=== PATIENT | female | born 1990 | race Caucasian/White ===

== ENCOUNTER 2019-01-09 13:46 | Inpatient (IN) | payer OTHER ==
[~2019-01-09 13:46] MED LIST: Bupivacaine 0.25% HCL 30 ML VIAL ONE
[2019-01-09 14:27] VITALS: BMI 27.6
[2019-01-09] MEDS ORDERED: hydrALAZINE 20 MG/ML VIAL SLOW IVP PRN ×2 (14:33→17:00)
[2019-01-09 14:47] LABS: Amnisure Test RUPTURE DETECTED (No Rupture)
[2019-01-09 14:48] LABS: Amnisure Internal Control QC ACCEPTABLE (ACCEPTABLE)
[2019-01-09] MEDS: Lactated Ringer's 1,000 ML IV SCH (16:28)
[2019-01-09] MEDS ORDERED: Lidocaine 1% (PF) 30 ML VIAL SC PRN (17:00)
[2019-01-09] MEDS ORDERED: Lactated Ringer's 1,000 ML IV SCH (17:00)
[2019-01-09] MEDS ORDERED: NS / Oxytocin 40 units/1000ml 1,000 ML IV PRN (17:00)
[2019-01-09] MEDS ORDERED: Penicillin G Potassium 5 MILL.UNITS in Sodium Chloride 0.9% 100 ML IVPB SCH (17:00)
[2019-01-09] MEDS ORDERED: Butorphanol Tartrate 1 MG/ML VIAL SLOW IVP PRN (17:00)
[2019-01-09] MEDS ORDERED: Ibuprofen 800 MG TAB PO PRN (17:00)
[2019-01-09] MEDS ORDERED: Promethazine HCl 25 MG/ML VIAL IM PRN ×2 (17:00→22:47)
[2019-01-09] MEDS ORDERED: NS w/ Oxytocin 10 units 500 ML IV SCH (17:00)
[2019-01-09] MEDS ORDERED: HYDROcodone/Acetaminophen 5/325 mg Tablet PO PRN ×2 (17:00)
[2019-01-09] MEDS ORDERED: Ondansetron PF 4 MG/2 ML Vial IVP PRN ×2 (17:00→22:47)
[2019-01-09 17:08] LABS: Hemoglobin 12.4 g/dL (12.0-16.0); Mean Corpuscular HGB CONC 34.6 g/dL (32.0-36.0); Mean Corpuscular Hemoglobin 33.3 pg (27.0-31.0); Mean Corpuscular Volume 96.4 fL (78.0-98.0); Mean Platelet Volume 9.1 fL (7.4-10.4); Platelet Count 204 thou/uL (130-400); RBC Distribution Width 12.4 % (11.5-14.5); Red Blood Cell (RBC) Count 3.74 mill/uL (4.20-5.40); White Blood Cell (WBC) Count 15.3 thou/uL (4.8-10.8)
[2019-01-09 17:48] LABS: HBSAg Index 0.15 S/CO (0-0.99); Hep B Surf Ag Non-Reactive S/CO (NonReactive); Syphilis Antibody Nonreactive (Nonreactive); Syphilis Antibody Index 0.04 S/CO (<1.00 Non-Reactive)
[2019-01-09] MEDS: Penicillin G 2.5 MILL.units 2.5 MILL.UNITS in Premix Bag 1 BAG IVPB SCH (21:16)
[2019-01-09] MEDS ORDERED: Fentanyl 4 mcg/Bup 0.1% Cadd 100 ML ONE (21:49)
[2019-01-09] MEDS: Fentanyl 4 mcg/Bupivacaine 0.1% Cassette 100 ML EPIDURAL SCH (22:36)
[2019-01-09] MEDS ORDERED: ePHEDrine/0.9% NaCl/PF SYRINGE 50 mg/10 ml SLOW IVP PRN (22:47)
[2019-01-09] MEDS ORDERED: Lactated Ringer's 500 ML IV PRN (22:47)
[2019-01-09] MEDS ORDERED: Acetaminophen 325 MG TAB PO PRN (22:47)
[2019-01-09] MEDS ORDERED: Naloxone HCl 0.4 mg/ml Vial IVP PRN ×2 (22:47)
[2019-01-09] MEDS ORDERED: diphenhydrAMINE 50 MG/ML VIAL IVP PRN (22:47)
[2019-01-09] MEDS ORDERED: Communication Order-Pharmacy FS SCH (23:00)
[2019-01-10] MEDS: Lactated Ringer's 1,000 ML IV SCH ×3 (01:12→18:04)
[2019-01-10] MEDS: Penicillin G 2.5 MILL.units 2.5 MILL.UNITS in Premix Bag 1 BAG IVPB SCH ×5 (01:12→14:02)
[2019-01-10] MEDS ORDERED: Fentanyl 4 mcg/Bup 0.1% Cadd 100 ML ONE (05:38)
[2019-01-10] MEDS ORDERED: Milk Of Magnesia 30 ML UDCUP PO PRN (06:56)
[2019-01-10] MEDS ORDERED: Lanolin Ointment 7 GM TUBE TOP PRN (06:56)
[2019-01-10] MEDS ORDERED: Bisacodyl 10 MG SUPP PR PRN (06:56)
[2019-01-10] MEDS ORDERED: HYDROcodone/Acetaminophen 5/325 mg Tablet PO PRN ×2 (06:56)
[2019-01-10] MEDS ORDERED: Preparation H Ointment 28 GM TUBE PR PRN (06:56)
[2019-01-10] MEDS ORDERED: hydrALAZINE 20 MG/ML VIAL SLOW IVP PRN (06:56)
[2019-01-10] MEDS ORDERED: Ondansetron PF 4 MG/2 ML Vial IVP PRN (06:56)
[2019-01-10] MEDS ORDERED: Benzocaine-Menthol 82.5 ML CAN TOP PRN (06:56)
[2019-01-10] MEDS ORDERED: NS / Oxytocin 40 units/1000ml 1,000 ML IV SCH (07:00)
[2019-01-10] MEDS: Fentanyl 4 mcg/Bupivacaine 0.1% Cassette 100 ML EPIDURAL SCH (07:02)
--- NOTE | 2019-01-10 08:12 | DN ---
DATE OF PROCEDURE: 01/10/2019 PREOPERATIVE DIAGNOSES: 1. A 28-year-old, G2, P0-0-1-0, who presented for premature rupture of the membranes. 2. Group B Streptococcus unknown. 3. History per the patient of size greater than dates for abdominal circumference. 4. 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 POSTOPERATIVE DIAGNOSES: 1. A 28-year-old, G2, P0-0-1-0, who presented for premature rupture of the membranes. 2. Group B Streptococcus unknown. 3. History per the patient of size greater than dates for abdominal circumference. 4. 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 5. Live-born male at 35 and 2 weeks. 6. Hymenal laceration with repair and perilateral labial repair first-degree abrasions. CLINICAL HISTORY: This patient is a 28-year-old female, G2, P0-0-1-0, who called the office line with a concern for leakage of fluid. She was advised to present to [facility] for evaluation and treatment. The patient was noted to be grossly ruptured. Her history was reviewed and noted that she had a due date of 02/12, which would have placed her at 35 weeks and 1 day. She was checked and was noted to be 3 cm, 70% effaced per the nurse, and 2 hours later, she had made a change to 4 cm, 80% effaced, and -2 station per the physician. Given her prematurity and GBS unknown status, the patient was given penicillin prophylaxis for GBS. She was able to complete 3 doses prior to delivery. The patient had an uneventful labor course. She did become uncomfortable after Pitocin was started, when she did not continue to make cervical change. The patient made progression to complete cervical dilation and +2 station and then began to push. DESCRIPTION OF PROCEDURE: With good maternal effort, the vertex was brought to the pelvic floor and . Delivery of the head in the ALVARO position noted delivery of the head, then the anterior shoulder, followed by the posterior shoulder, then the remainder of the infant's body. The infant cried spontaneously. It was stimulated and bulb suctioned before being handed over to the nurses in attendance to the delivery. The cord was doubly clamped and then cut by the father, and the was placed on the maternal abdomen for continued stimulation. The placenta was delivered spontaneously intact with a 3-vessel cord. Placenta was sent for evaluation, but no abnormalities were noted at the time of delivery. The exploration of the vagina introitus and cervix noted a hymenal laceration that had a portion of the hymen lingering through the introitus and onto the outer portion like a small tail. This was reapproximated with a 3-0 Vicryl on SH with excellent hemostasis. There were also bilateral labial tears that were first-degree lacerations that were repaired and reapproximated. The patient had good uterine tone at the end of the procedure and was noted to be firm and well below the umbilicus. She was cleansed and de-draped, and all needle, sponge, lap, and instrument counts were correct x2 at the end of the procedure. The mother was able to recover with her infant. The Neonatology Team was called in for assessment of the shortly after delivery when he had issues with respirations. After support, the team deemed him satisfactory for the nursery in regular care with continued surveillance. There were no other issues surrounding this delivery. Job ID: [id number]
[2019-01-10] MEDS: Docusate Calcium (SURFAK) 240 MG CAP PO SCH ×3 (12:41→21:28)
[2019-01-10] MEDS: Prenatal Vitamin 1 TAB PO SCH (12:41)
[2019-01-10] MEDS: Ibuprofen 800 MG TAB PO SCH ×2 (13:30→21:28)
[2019-01-11] MEDS: Lactated Ringer's 1,000 ML IV SCH ×3 (04:08→17:30)
[2019-01-11] MEDS: Ibuprofen 800 MG TAB PO SCH ×3 (06:16→21:45)
[2019-01-11] MEDS ORDERED: Adacel (T-DAP) 0.5 ML SYRINGE IM ONE (06:56)
[2019-01-11] MEDS: Prenatal Vitamin 1 TAB PO SCH (09:19)
[2019-01-11] MEDS: Docusate Calcium (SURFAK) 240 MG CAP PO SCH ×2 (09:20→21:45)
[2019-01-12] MEDS: Ibuprofen 800 MG TAB PO SCH (05:02)
[2019-01-12] MEDS: Lactated Ringer's 1,000 ML IV SCH ×2 (05:04→07:24)
[2019-01-12 08:27] VITALS: BP 113/59; TEMP 98.3
[2019-01-12] MEDS: Prenatal Vitamin 1 TAB PO SCH (09:14)
[2019-01-12] MEDS: Docusate Calcium (SURFAK) 240 MG CAP PO SCH (09:14)
== END 2019-01-12 11:25 | disposition home or self-care (01) | DRG 807 ==
LOC: L&D/OP 13:46 → L&D 16:52 → 3SW 01-10 15:42
PROVIDERS: ADMIT Obstetrics & Gynecology; ATTEND Obstetrics & Gynecology
PROC: 10E0XZZ Delivery of Products of Conception, External Approach (ICD-10-PCS; principal; 2019-01-10)
PROC: 0HQ9XZZ Repair Perineum Skin, External Approach (ICD-10-PCS; 2019-01-10)
DX: O42.013 Preterm premature rupture of membranes, onset of labor within 24 hours of rupture, third trimester (principal); Z37.0 Single live birth; Z3A.35 35 weeks gestation of pregnancy; O70.0 First degree perineal laceration during delivery
CPT/HCPCS: 36415; 36416; 51702; 84112; 85027; 86780; 86850; 86900; 86901; 87340; 88307; 90715; 99285; J2001; J2540; J2590; J3490; S0020

== ENCOUNTER 2020-02-23 02:12 | Inpatient (IN) | payer OTHER ==
[2020-02-23 03:02] VITALS: BMI 27.3
[2020-02-23] MEDS ORDERED: HYDROcodone/Acetaminophen 5/325 mg Tablet PO PRN ×4 (03:03→10:41)
[2020-02-23] MEDS ORDERED: Carboprost 250 MCG/ML AMP IM PRN (03:03)
[2020-02-23] MEDS ORDERED: Lidocaine 1% (PF) 30 ML VIAL SC PRN ×2 (03:03→07:40)
[2020-02-23] MEDS ORDERED: Promethazine HCl 25 MG/ML VIAL IM PRN ×2 (03:03→03:51)
[2020-02-23] MEDS ORDERED: Ondansetron PF 4 MG/2 ML Vial IVP PRN ×3 (03:03→10:41)
[2020-02-23] MEDS ORDERED: Methylergonovine 0.2 MG/ML VIAL IM PRN (03:03)
[2020-02-23] MEDS ORDERED: Meperidine HCl/PF 25 MG/ML VIAL IM/IV PRN (03:03)
[2020-02-23] MEDS ORDERED: hydrALAZINE 20 MG/ML VIAL SLOW IVP PRN ×2 (03:03→10:41)
[2020-02-23] MEDS ORDERED: Misoprostol 200 MCG TAB PR PRN (03:03)
[2020-02-23] MEDS ORDERED: Butorphanol Tartrate 1 MG/ML VIAL SLOW IVP PRN (03:03)
[2020-02-23] MEDS ORDERED: NS / Oxytocin 40 units/1000ml 1,000 ML IV PRN ×2 (03:03→07:40)
[2020-02-23] MEDS ORDERED: Ibuprofen 800 MG TAB PO PRN (03:03)
[2020-02-23] MEDS ORDERED: NS w/ Oxytocin 10 units 500 ML IV SCH ×2 (03:15→07:45)
[2020-02-23] MEDS ORDERED: FLU VACC QS2020-21(6MOS UP)/PF 60 MCG/0.5 ML SYRINGE IM ONE (03:15)
[2020-02-23] MEDS ORDERED: Lactated Ringer's 1,000 ML IV SCH (03:15)
[2020-02-23 03:17] LABS: Hemoglobin 14.3 g/dL (12.0-16.0); Mean Corpuscular HGB CONC 35.2 g/dL (32.0-36.0); Mean Corpuscular Volume 99.5 fL (78.0-98.0); Mean Platelet Volume 8.5 fL (7.4-10.4); Platelet Count 155 thou/uL (130-400); RBC Distribution Width 12.3 % (11.5-14.5); Red Blood Cell (RBC) Count 4.07 mill/uL (4.20-5.40); White Blood Cell (WBC) Count 13.8 thou/uL (4.8-10.8)
[2020-02-23] MEDS ORDERED: Fentanyl 4 mcg/Bup 0.1% Cadd 100 ML ONE (03:19)
[2020-02-23] MEDS: Lactated Ringer's 1,000 ML IV SCH ×2 (03:35→09:00)
[2020-02-23] MEDS ORDERED: Lactated Ringer's 500 ML IV PRN (03:51)
[2020-02-23] MEDS ORDERED: Acetaminophen 325 MG TAB PO PRN (03:51)
[2020-02-23] MEDS ORDERED: diphenhydrAMINE 50 MG/ML VIAL IVP PRN (03:51)
[2020-02-23] MEDS ORDERED: EPHEDRINE 25 MG/5 ML SYRINGE SLOW IVP PRN (03:51)
[2020-02-23] MEDS ORDERED: Naloxone HCl 0.4 mg/ml Vial IVP PRN ×2 (03:51)
[2020-02-23] MEDS ORDERED: Fentanyl 4 mcg/Bupivacaine 0.1% Cassette 100 ML EPIDURAL SCH (04:00)
[2020-02-23] MEDS ORDERED: Communication Order-Pharmacy FS SCH (04:00)
[2020-02-23 04:28] LABS: HBSAg Index 0.24 S/CO (0-0.99); Hep B Surf Ag Non-Reactive S/CO (NonReactive)
[2020-02-23 04:37] LABS: Syphilis Antibody Nonreactive (Nonreactive); Syphilis Antibody Index 0.03 S/CO (<1.00 Non-Reactive)
[2020-02-23] MEDS ORDERED: Bupivacaine 0.25% HCL 30 ML VIAL ONE (08:53)
[2020-02-23] MEDS ORDERED: NS / Oxytocin 40 units/1000ml 1,000 ML ONE (09:52)
[2020-02-23] MEDS ORDERED: Lidocaine 1% (PF) 30 ML VIAL ONE (09:52)
[2020-02-23] MEDS ORDERED: Milk Of Magnesia 30 ML UDCUP PO PRN (10:41)
[2020-02-23] MEDS ORDERED: Misoprostol 200 MCG TAB VAG PRN (10:41)
[2020-02-23] MEDS ORDERED: Lanolin Ointment 7 GM TUBE TOP PRN (10:41)
[2020-02-23] MEDS ORDERED: Bisacodyl 10 MG SUPP PR PRN (10:41)
[2020-02-23] MEDS ORDERED: Zolpidem Tartrate 5 MG TAB PO PRN (10:41)
[2020-02-23] MEDS ORDERED: diphenhydrAMINE 25 MG CAP PO PRN (10:41)
[2020-02-23] MEDS ORDERED: Preparation H Ointment 28 GM TUBE PR PRN (10:41)
[2020-02-23] MEDS ORDERED: Benzocaine-Menthol 82.5 ML CAN TOP PRN (10:41)
[2020-02-23] MEDS ORDERED: NS / Oxytocin 40 units/1000ml 1,000 ML IV SCH (10:45)
[2020-02-23] MEDS: Ibuprofen 800 MG TAB PO SCH ×2 (13:37→21:25)
[2020-02-23 16:00] LABS: SARS-CoV-2 MS2 Positive; SARS-CoV-2 N Gene Negative; SARS-CoV-2 S Gene Negative; SARS-CoV-2 by NAA Not Detected (NotDetected); SARS-CoV-2 orf1ab Negative
[2020-02-23] MEDS: Ferrous Sulfate 325 MG TAB PO SCH (16:23)
[2020-02-23] MEDS: Docusate Calcium (SURFAK) 240 MG CAP PO SCH (21:25)
[2020-02-24] MEDS: Ibuprofen 800 MG TAB PO SCH (05:38)
[2020-02-24 05:43] VITALS: BP 146/68; TEMP 98.3
[2020-02-24 06:44] LABS: Hemoglobin 12.6 g/dL (12.0-16.0); Mean Corpuscular HGB CONC 33.8 g/dL (32.0-36.0); Mean Corpuscular Hemoglobin 34.2 pg (27.0-31.0); Mean Platelet Volume 8.7 fL (7.4-10.4); Platelet Count 123 thou/uL (130-400); RBC Distribution Width 12.5 % (11.5-14.5); Red Blood Cell (RBC) Count 3.68 mill/uL (4.20-5.40); White Blood Cell (WBC) Count 20.2 thou/uL (4.8-10.8)
[2020-02-24] MEDS ORDERED: Adacel (T-DAP) 0.5 ML SYRINGE IM ONE (09:00)
[2020-02-24] MEDS ORDERED: Prenatal Vitamin 1 TAB PO SCH (09:00)
[2020-02-24] MEDS: Ferrous Sulfate 325 MG TAB PO SCH (09:55)
[2020-02-24] MEDS: Docusate Calcium (SURFAK) 240 MG CAP PO SCH (09:56)
== END 2020-02-24 14:03 | disposition home or self-care (01) | DRG 807 ==
LOC: L&D/OP 02:12 → L&D 03:03 → 3SE 13:28
PROVIDERS: ADMIT Obstetrics & Gynecology; ATTEND Obstetrics & Gynecology
PROC: 10E0XZZ Delivery of Products of Conception, External Approach (ICD-10-PCS; principal; 2020-02-23)
PROC: 0HQ9XZZ Repair Perineum Skin, External Approach (ICD-10-PCS; 2020-02-23)
DX: O70.0 First degree perineal laceration during delivery (principal); Z37.0 Single live birth; Z3A.38 38 weeks gestation of pregnancy
CPT/HCPCS: 36415; 51702; 85027; 86780; 86850; 86900; 86901; 87340; 87635; 99285; J2590; S0020; U0003

== ENCOUNTER 2024-05-25 10:31 | Outpatient (CLI) | payer BC | END 2024-05-25 10:32 | disposition home or self-care (01) | LOC: SCSRAD 10:31 | PROVIDERS: ATTEND Family Medicine | DX: R05.1 Acute cough (principal); R50.9 Fever, unspecified; R91.8 Other nonspecific abnormal finding of lung field | CPT/HCPCS: 71046 ==